=== PATIENT | female | born 1970 | race Caucasian/White ===

== ENCOUNTER 2022-04-08 08:49 | Outpatient (CLI) | payer OTHER ==
[2022-04-08] MEDS ORDERED: Iopamidol 370 76% 100 ML VIAL ONE (12:00)
== END 2022-04-08 08:50 | disposition home or self-care (01) ==
LOC: CT 08:49
PROVIDERS: ATTEND Internal Medicine Hematology & Oncology
DX: C18.9 Malignant neoplasm of colon, unspecified (principal); R16.0 Hepatomegaly, not elsewhere classified; K76.0 Fatty (change of) liver, not elsewhere classified; Z98.890 Other specified postprocedural states
CPT/HCPCS: 71260; 74177; Q9967

== ENCOUNTER 2022-06-25 12:26 | Outpatient (CLI) | payer OTHER ==
[2022-06-25] MEDS ORDERED: Iopamidol 370 76% 100 ML VIAL ONE (13:28)
== END 2022-06-25 12:27 | disposition home or self-care (01) ==
LOC: CT 12:26
PROVIDERS: ATTEND Internal Medicine
DX: C18.9 Malignant neoplasm of colon, unspecified (principal); K66.8 Other specified disorders of peritoneum
CPT/HCPCS: 71260; 74177; 82565; Q9967

== ENCOUNTER 2022-10-24 13:21 | Outpatient (CLI) | payer OTHER | END 2022-10-24 13:22 | disposition home or self-care (01) | LOC: BICMRI 13:21 | PROVIDERS: ATTEND Family Medicine | DX: M50.122 Cervical disc disorder at C5-C6 level with radiculopathy (principal); M50.123 Cervical disc disorder at C6-C7 level with radiculopathy; M50.13 Cervical disc disorder with radiculopathy, cervicothoracic region | CPT/HCPCS: 72141 ==

== ENCOUNTER 2022-10-31 12:18 | Outpatient (CLI) | payer OTHER ==
[~2022-10-31 12:18] MED LIST: Iopamidol 370 76% 100 ML VIAL ONE
== END 2022-10-31 12:19 | disposition home or self-care (01) ==
LOC: CT 12:18
PROVIDERS: ATTEND Internal Medicine
DX: C18.2 Malignant neoplasm of ascending colon (principal)
CPT/HCPCS: 71260; 74177

== ENCOUNTER 2023-03-19 10:03 | Outpatient (CLI) | payer OTHER ==
[~2023-03-19 10:03] MED LIST changes: -Iopamidol 370 76% 100 ML VIAL ONE; +Iopamidol-370 76% 500 ML MDV (1 ML CHARGE) ONE
== END 2023-03-19 10:04 | disposition home or self-care (01) ==
LOC: CT 10:03 → BICCT 10:04
PROVIDERS: ATTEND Internal Medicine
DX: C18.2 Malignant neoplasm of ascending colon (principal); C78.7 Secondary malignant neoplasm of liver and intrahepatic bile duct; K46.9 Unspecified abdominal hernia without obstruction or gangrene; K43.9 Ventral hernia without obstruction or gangrene
CPT/HCPCS: 71260; 74177; 82565; Q9967